=== PATIENT | male | born 1965 | race Caucasian/White ===

== ENCOUNTER → 2016-05-31 | Outpatient (CLI) | payer BC ==
[2016-05-31 12:02] LABS: HEMOGLOBIN 15.7 gm/dl (14.0-17.5); RED BLOOD COUNT 5.12 M/UL (4.20-5.50)
[2016-05-31 12:19] LABS: BUN/CREATININE RATIO 16 (0-10)
== END ==
LOC: LAB 10:47
PROVIDERS: Internal Medicine Nephrology
DX: M25.552 Pain in left hip (principal); E66.9 Obesity, unspecified; M16.12 Unilateral primary osteoarthritis, left hip
CPT/HCPCS: 36415; 73502; 80053; 80061; 85025

== ENCOUNTER → 2020-03-10 | Outpatient (CLI) | payer BC, OTHER ==
[~2020-03-10] MED LIST: ATORVASTATIN CA20 MG PO; CYCLOBENZAPRINE5 MG PO; ELIQUIS 2.5 MG2.5 MG PO; FLEXERIL 10 MG10 MG PO; GLUCOPHAGE 500500 MG PO; IBUPROFEN600 MG PO; LOPRESSOR 50 MG50 MG PO; METFORMIN HCL1000 M1 PO; MOBIC15 MG PO; NAPROSYN500 MG PO; POLYETHYLENE GL17 GM PO; TYLENOL 500 MG500 MG PO; VITAMIN D21250 MCG PO
== END ==
LOC: CATH 07:50 → EDSTATUS 09:00 → CATH 09:00
DX: Q21.1 Atrial septal defect (principal); I63.9 Cerebral infarction, unspecified; I34.0 Nonrheumatic mitral (valve) insufficiency; E11.9 Type 2 diabetes mellitus without complications; R74.8 Abnormal levels of other serum enzymes; M25.559 Pain in unspecified hip; M25.511 Pain in right shoulder; M79.676 Pain in unspecified toe(s); E78.5 Hyperlipidemia, unspecified; E55.9 Vitamin D deficiency, unspecified; B35.1 Tinea unguium; E66.9 Obesity, unspecified; Z79.84 Long term (current) use of oral hypoglycemic drugs; Z79.01 Long term (current) use of anticoagulants; Z79.899 Other long term (current) drug therapy; Z68.34 Body mass index [BMI] 34.0-34.9, adult; Z20.828 Contact with and (suspected) exposure to other viral communicable diseases; Z96.642 Presence of left artificial hip joint; Z87.74 Personal history of (corrected) congenital malformations of heart and circulatory system
CPT/HCPCS: 82962; 93312; 93320; J1200; J2250; J2310; J3010

== ENCOUNTER → 2020-09-28 | Outpatient (CLI) | payer BC ==
[2020-09-28 07:08] LABS: HEMOGLOBIN 15.4 gm/dl (14.0-17.5); RED BLOOD COUNT 5.06 M/UL (4.20-5.50); WHITE BLOOD COUNT 6.1 K/UL (4.5-11.0)
[2020-09-28 07:25] LABS: BUN/CREATININE RATIO 20 (0-10)
[2020-09-29 08:14] LABS: VITAMIN D, 25-HYDROXY 47.5 ng/mL (30.0-100.0)
[2020-09-30 05:09] LABS: PROSTATE SPECIFIC AG, SERUM 0.3 ng/mL (0.0-4.0)
== END ==
LOC: LAB 06:41
PROVIDERS: Nurse Practitioner Family
DX: E78.5 Hyperlipidemia, unspecified (principal); E11.9 Type 2 diabetes mellitus without complications; E55.9 Vitamin D deficiency, unspecified
CPT/HCPCS: 36415; 80053; 80061; 82607; 84153; 84154; 84439; 84443; 85025

== ENCOUNTER → 2021-01-03 | Outpatient (CLI) | payer BC ==
[2021-01-03 07:16] LABS: HEMOGLOBIN 15.2 gm/dl (14.0-17.5); RED BLOOD COUNT 4.96 M/UL (4.20-5.50); WHITE BLOOD COUNT 7.6 K/UL (4.5-11.0)
[2021-01-03 07:37] LABS: BUN/CREATININE RATIO 16 (0-10)
== END ==
LOC: LAB 06:22
PROVIDERS: Nurse Practitioner Family
DX: I10 Essential (primary) hypertension (principal)
CPT/HCPCS: 36415; 80053; 85025

== ENCOUNTER → 2021-05-16 | Outpatient (CLI) | payer BC ==
[2021-05-16 06:49] LABS: HEMOGLOBIN 13.9 gm/dl (14.0-17.5); RED BLOOD COUNT 4.62 M/UL (4.20-5.50); WHITE BLOOD COUNT 6.1 K/UL (4.5-11.0)
[2021-05-16 07:17] LABS: BUN/CREATININE RATIO 22 (0-10)
== END ==
LOC: LAB 06:20
PROVIDERS: Nurse Practitioner Family
DX: I10 Essential (primary) hypertension (principal); E11.9 Type 2 diabetes mellitus without complications; E55.9 Vitamin D deficiency, unspecified
CPT/HCPCS: 36415; 80053; 80061; 82570; 82607; 83036; 84156; 84439; 84443; 85025

== ENCOUNTER 2021-07-15 07:05 | Emergency (ER) | payer BC ==
[2021-07-15] MEDS ORDERED: CYCLOBENZAPRINE10 MG PO (09:16)
== END 2021-07-15 09:28 | disposition home or self-care (01) ==
LOC: ER1 07:05
DX: S39.012A Strain of muscle, fascia and tendon of lower back, initial encounter (principal); E11.9 Type 2 diabetes mellitus without complications; Z86.73 Personal history of transient ischemic attack (TIA), and cerebral infarction without residual deficits; Z96.649 Presence of unspecified artificial hip joint; W01.0XXA Fall on same level from slipping, tripping and stumbling without subsequent striking against object, initial encounter
CPT/HCPCS: 72131; 99283; J1885